=== PATIENT | female | born 1980 | race Caucasian/White ===

== ENCOUNTER 2022-12-03 09:15 | Outpatient (AMB) | payer MEDICAID, SELFPAY ==
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
[2022-12-03 09:17] VITALS: BP 124/74; PULSE 92; RESP 12; TEMP 36.4; O2SAT 99; BMI 38.7
== END 2022-12-03 10:12 | disposition home or self-care (01) ==
PROVIDERS: PCP Nurse Practitioner Family; Visit Provider Nurse Practitioner Family
DX: Z00.00 Encounter for general adult medical examination without abnormal findings (principal); Z72.0 Tobacco use; E66.9 Obesity, unspecified; Z68.37 Body mass index [BMI] 37.0-37.9, adult
CPT/HCPCS: 99386